=== PATIENT | female | born 1935 | race Caucasian/White ===

== ENCOUNTER 2020-05-28 05:50 | Day surgery (SDC) | payer OTHER, SELFPAY ==
[~2020-05-28] VITALS: Ht 165.1 cm; Wt 72.6 kg
[2020-05-28] MEDS ORDERED: CEFAZOLIN SOD 1 GM in D5W 50 ML IV ONE (07:00)
[2020-05-28] MEDS ORDERED: ONDANSETRON HCL 4 MG/2 ML VIAL IVP PRN (07:45)
[2020-05-28] MEDS ORDERED: MIDAZOLAM HCL 5 MG/5 ML VIAL IVP PRN (07:45)
[2020-05-28 09:35] VITALS: BP_SYST 122
[2020-05-28] MEDS ORDERED: D5/0.45 NS 1,000 ML IV SCH (10:00)
[2020-05-28] MEDS ORDERED: HYDROmorphone 1 MG INJ. 1 MG/ML AMPUL IVP PRN (10:00)
[2020-05-28] MEDS ORDERED: HYDROcodone/ACETAMIN 5-325 MG TAB (NORCO/ VICODIN) PO PRN ×2 (10:00)
== END 2020-05-28 10:20 | disposition home or self-care (01) ==
LOC: SMU 05:50 → SDS 05:50
PROVIDERS: ATTEND Colon & Rectal Surgery
DX: C44.519 Basal cell carcinoma of skin of other part of trunk (principal); I10 Essential (primary) hypertension; J44.9 Chronic obstructive pulmonary disease, unspecified; G62.9 Polyneuropathy, unspecified; I48.91 Unspecified atrial fibrillation; Z79.899 Other long term (current) drug therapy; Z20.828 Contact with and (suspected) exposure to other viral communicable diseases
CPT/HCPCS: 11606; 13101; 88305; 93005; J0690; J7060; U0003

== ENCOUNTER 2022-04-04 11:05 | Emergency (ER) | payer OTHER ==
[~2022-04-04] VITALS: Ht 165.1 cm; Wt 68.9 kg
[2022-04-04 11:07] VITALS: BP_SYST 159
--- NOTE | 2022-04-04 11:07 | NUR ---
Placed in room 2 . Placed on ekg monitor tech, blood pressure machine and pulse oximeter. To gown for exam. Side rails up. Report given to MITCHEL OBREGON.
--- NOTE | 2022-04-04 11:15 | NUR ---
RECEIVED PT FROM MITCHEL SHIELDS. PT BIB DAUGHTER DUE TO FALL. LAST NIGHT THE PT WALKED TO THE BATHROOM, STATES SHE FELL AND DOESN'T REMEMBER DOING IT. PT HAD DIFFICULTY BREATHING AND HAS LEFT ELBOW SWELLING AND ECCYMOSIS. PT IS AAOX4. ON R/A. DENIES N/V/D/C. SKIN INTACT, PERIPHERAL PULSES NORMAL. STATES PAIN WITH BREATHING IS 7/10. SIDERAILS UP X2.
--- NOTE | 2022-04-04 11:20 | NUR ---
DR. REY AT BEDSIDE. EKG PREFORMED. LABS OBTAINED.
[2022-04-04] MEDS ORDERED: KETOROLAC TROMETHAMINE 30 MG VIAL IM ONE (11:45)
[2022-04-04] MEDS ORDERED: LORazepam 1 MG TABLET PO ONE (11:45)
--- NOTE | 2022-04-04 11:45 | NUR ---
SCHEDULED MEDS GIVEN AND TOLERATED WELL. PT TAKEN FOR CT SCAN.
[2022-04-04 11:59] LABS: BASOPHILS % (AUTO) 0.4 % (0.0-2.0); EOSINOPHILS # (AUTO) 0.1 K/uL (0.0-0.4); EOSINOPHILS % (AUTO) 2.2 % (0.0-4.0); HEMATOCRIT 37.7 % (36-48); HEMOGLOBIN 12.8 g/dL (12.0-16.0); LYMPHOCYTES # (AUTO) 0.7 K/uL (1.0-5.5); LYMPHOCYTES % (AUTO) 11.3 % (20.5-51.5); MEAN CORPUSCULAR HEMOGLOBIN 32 pg (27-31); MEAN CORPUSCULAR HGB CONC 34 % (32-36); MEAN CORPUSCULAR VOLUME 95 fL (79.0-98.0); MONOCYTES # (AUTO) 0.5 K/uL (0.0-1.0); MONOCYTES % (AUTO) 8.2 % (1.7-9.3); NEUTROPHILS # (AUTO) 5.2 K/uL (1.8-7.7); NEUTROPHILS % (AUTO) 77.9 % (40.0-70.0); PLATELET COUNT (AUTO) 258 K/uL (130-430); RED BLOOD CELL COUNT(AUTO) 3.98 MIL/uL (4.2-6.2); WHITE BLOOD COUNT (AUTO) 6.6 K/uL (4.8-10.8)
--- NOTE | 2022-04-04 12:19 | NUR ---
PT TAKEN FOR CT SCAN AT THIS TIME.
[2022-04-04 12:24] LABS: ANION GAP 8 (5-15); CALCIUM 9.2 mg/dL (8.4-11.0); CHLORIDE 106 mmol/L (98-107); CREATININE 1.01 mg/dL (0.55-1.30); GLUCOSE 169 mg/dL (70-99); POTASSIUM 3.8 mmol/L (3.5-5.1); UREA NITROGEN, BLOOD 10 mg/dL (8-21)
[2022-04-04 12:26] LABS: INR 1.2 (0.8-1.2); PROTHROMBIN TIME 12.5 SECS (9.5-12.5)
[2022-04-04 12:31] LABS: ALANINE AMINOTRANSFERASE 37 U/L (12-78); ASPARTATE AMINOTRANSFERASE 26 U/L (10-37); TOTAL BILIRUBIN 0.8 mg/dL (0.0-1.0)
[2022-04-04] MEDS ORDERED: IBUP-1969 PO (13:10)
--- NOTE | 2022-04-04 14:29 | NUR ---
Patient given written and verbal discharge instructions and verbalizes understanding. ER MD discussed with patient the results and treatment provided. Patient in stable condition. ID arm band removed. IV catheter removed intact and dressing applied, no active bleeding. Rx of IBUPROPHEN given. Patient educated on pain management and to follow up with PMD. Pain Scale 2/10. Opportunity for questions provided and answered. Medication side effect fact sheet provided.
[2022-04-04 14:30] VITALS: BP_SYST 147
== END 2022-04-04 14:29 | disposition home or self-care (01) ==
LOC: SED 11:05
DX: S20.211A Contusion of right front wall of thorax, initial encounter (principal); R55 Syncope and collapse; Z88.5 Allergy status to narcotic agent; Z88.6 Allergy status to analgesic agent; Z88.8 Allergy status to other drugs, medicaments and biological substances; Z79.899 Other long term (current) drug therapy; W18.11XA Fall from or off toilet without subsequent striking against object, initial encounter; Y93.89 Activity, other specified; Y92.002 Bathroom of unspecified non-institutional (private) residence as the place of occurrence of the external cause; Y99.8 Other external cause status
CPT/HCPCS: 99285; 71250; 80053; 82962; 85025; 85610; 85730; 84484; 36415; 93005; 76376; 96372; J1885

== ENCOUNTER 2022-05-19 13:51 | Inpatient (IN) | payer MEDICARE, OTHER ==
[~2022-05-19] VITALS: Ht 160 cm; Wt 68.0 kg
[~2022-05-19 13:51] MED LIST: IBUP-1969 PO
[2022-05-19 13:52] VITALS: BP_SYST 145
--- NOTE | 2022-05-19 14:06 | NUR ---
DR HERNANDEZ AT BEDSIDE EXAMINING THE PATIENT.
[2022-05-19] MEDS ORDERED: methylPREDNISolone SOD SUCC/PF 62.5 MG/ML VIAL IVP ONE (14:15)
[2022-05-19] MEDS ORDERED: LORazepam 2 MG/ML VIAL IVP ONE (14:15)
[2022-05-19] MEDS ORDERED: ALBUTEROL SULFATE 0.083% 2.5 MG/3 ML VIAL.NEB INH ONE (14:15)
[2022-05-19 15:29] LABS: BASOPHILS % (AUTO) 0.4 % (0.0-2.0); EOSINOPHILS # (AUTO) 0.2 K/uL (0.0-0.4); HEMATOCRIT 30.1 % (36-48); HEMOGLOBIN 10.2 g/dL (12.0-16.0); LYMPHOCYTES # (AUTO) 0.5 K/uL (1.0-5.5); LYMPHOCYTES % (AUTO) 5.8 % (20.5-51.5); MEAN CORPUSCULAR HEMOGLOBIN 32 pg (27-31); MEAN CORPUSCULAR HGB CONC 34 % (32-36); MEAN CORPUSCULAR VOLUME 94 fL (79.0-98.0); MONOCYTES # (AUTO) 0.7 K/uL (0.0-1.0); MONOCYTES % (AUTO) 8.6 % (1.7-9.3); NEUTROPHILS # (AUTO) 7.2 K/uL (1.8-7.7); NEUTROPHILS % (AUTO) 83.2 % (40.0-70.0); PLATELET COUNT (AUTO) 367 K/uL (130-430); RED CELL DISTRIBUTION WIDTH 13.8 % (9.0-15.0); WHITE BLOOD COUNT (AUTO) 8.6 K/uL (4.8-10.8)
[2022-05-19 15:38] LABS: ANION GAP 5 (5-15); CALCIUM 9.3 mg/dL (8.4-11.0); CHLORIDE 102 mmol/L (98-107); CREATININE 1.03 mg/dL (0.55-1.30); GLUCOSE 120 mg/dL (70-99); UREA NITROGEN, BLOOD 11 mg/dL (8-21)
[2022-05-19 15:46] LABS: ALANINE AMINOTRANSFERASE 37 U/L (12-78); ALBUMIN 3.4 g/dL (3.4-4.8); ASPARTATE AMINOTRANSFERASE 28 U/L (10-37); TOTAL BILIRUBIN 0.9 mg/dL (0.0-1.0)
--- NOTE | 2022-05-19 16:00 | NUR ---
# 20 gauge angiocath placed to left a/c . Use of aseptic technique. Opsite placed over site. Blood return noted. Flushed with 10 cc of normal saline. No evidence of infiltration noted. Patient tolerated well.
[2022-05-19] MEDS ORDERED: NS 500 ML IV ONE (16:15)
--- NOTE | 2022-05-19 16:20 | NUR ---
IV ATIVAN DISCONTINUED BY DR HERNANDEZ.
--- NOTE | 2022-05-19 16:30 | NUR ---
OXYGEN SWITCHED FROM BIPAP TO NASAL CANNULA AT [address]L ORDERED BY DR ELAM.
[2022-05-19] MEDS ORDERED: NOREPINEPHRINE BITARTRATE 4 MG in NS 246 ML IV ONE (17:00)
[2022-05-19] MEDS ORDERED: IPRATROPIUM/ALBUTEROL SULFATE 3 ML AMPUL.NEB (DUONEB) INH PRN (17:00)
[2022-05-19] MEDS ORDERED: RIVA15TA PO (17:05)
[2022-05-19] MEDS ORDERED: BACL20 PO (17:05)
[2022-05-19] MEDS ORDERED: ROPI1TAB6 PO (17:05)
[2022-05-19] MEDS ORDERED: LEVE1000 PO (17:05)
[2022-05-19] MEDS ORDERED: AMLO5TAB4 PO (17:05)
[2022-05-19] MEDS ORDERED: CLON1TAB12 PO (17:05)
[2022-05-19] MEDS ORDERED: NEU300 PO (17:05)
[2022-05-19] MEDS ORDERED: COMMUNICATION ORDER XX ONE (17:15)
--- NOTE | 2022-05-19 18:04 | NUR ---
Admit bed requested Patient will be admitted to care of . Admitted to TELEMETRY unit. Diagnosis EXACERBATION COPD Inpatient (Yes) Observation ( No) Orientation concerns or request close to nursing station ( No) Covid Status PENDING On vent or bipap NO Isolation requirements NO Needs a sitter NO From Home (Yes or if No enter name of facility) YES Requires Dialysis (NO) Med Rec Completed (Yes )
[2022-05-19] MEDS: IPRATROPIUM/ALBUTEROL SULFATE 3 ML AMPUL.NEB (DUONEB) INH SCH ×2 (19:41→23:06)
--- NOTE | 2022-05-19 20:00 | NUR ---
Patient resting quietly. No acute distress noted. Pt repositioned in bed. RT at bedside.
[2022-05-19] MEDS: methylPREDNISolone SOD SUCC/PF 62.5 MG/ML VIAL IVP SCH (21:00)
[2022-05-19] MEDS: cefTRIAXone 1 GM in D5W 50 ML IV SCH (21:35)
--- NOTE | 2022-05-19 21:44 | NUR ---
Medication reconciliation completed with information provided by patient list. Any prior medication reconciliation on file was reviewed and corrected.
--- NOTE | 2022-05-19 22:00 | NUR ---
[facility] Licensed nurse present. IV present no signs or symptoms of infiltration. Report given to Sherry GRULLON.
[2022-05-20] MEDS ORDERED: AZITHROMYCIN 500 MG/VIAL (ZITHROMAX) IV ONE (01:42)
[2022-05-20] MEDS: AZITHROMYCIN 250 MG in NS 250 ML IV SCH (03:18)
[2022-05-20 04:56] VITALS: BP_SYST 122
--- NOTE | 2022-05-20 07:30 | NUR ---
AM ROUNDS ASSUMED PATIENT CARE. IN BED ON HIGH BACK REST. NOTED SHORTNESS OF BREATH O EXERTION, DRY COUGH TOO. O2 AT 3LITERS NASAL; CANNULA O2 SAT 94%. CALLED RT FOR BREATHING TREATMENTS. PLAN OF CARE DISCUSSED WITH PATIENT, ORIENTED TO USE OF CALL LIGHT. PATIENT VERBALIZED UNDERSTANDING
[2022-05-20 07:34] LABS: ANION GAP 9 (5-15); CALCIUM 8.8 mg/dL (8.4-11.0); CHLORIDE 99 mmol/L (98-107); CREATININE 1.14 mg/dL (0.55-1.30); GLUCOSE 142 mg/dL (70-99); UREA NITROGEN, BLOOD 13 mg/dL (8-21)
[2022-05-20 07:42] LABS: BASOPHILS % (AUTO) 0.4 % (0.0-2.0); HEMOGLOBIN 9.7 g/dL (12.0-16.0); LYMPHOCYTES # (AUTO) 0.3 K/uL (1.0-5.5); MEAN CORPUSCULAR HEMOGLOBIN 32 pg (27-31); MEAN CORPUSCULAR HGB CONC 35 % (32-36); MEAN CORPUSCULAR VOLUME 94 fL (79.0-98.0); MONOCYTES # (AUTO) 0.3 K/uL (0.0-1.0); MONOCYTES % (AUTO) 4.3 % (1.7-9.3); NEUTROPHILS # (AUTO) 5.8 K/uL (1.8-7.7); NEUTROPHILS % (AUTO) 91.3 % (40.0-70.0); PLATELET COUNT (AUTO) 323 K/uL (130-430); RED CELL DISTRIBUTION WIDTH 13.6 % (9.0-15.0); WHITE BLOOD COUNT (AUTO) 6.3 K/uL (4.8-10.8)
[2022-05-20] MEDS: IPRATROPIUM/ALBUTEROL SULFATE 3 ML AMPUL.NEB (DUONEB) INH SCH ×3 (07:48→23:38)
[2022-05-20 07:59] VITALS: BP_SYST 133
[2022-05-20] MEDS: methylPREDNISolone SOD SUCC/PF 62.5 MG/ML VIAL IVP SCH ×2 (08:42→21:58)
--- NOTE | 2022-05-20 11:15 | NUR ---
CHANGE OF THREADING MACHINE OPERATOR REPORT GIVEN TO GEORGI FOR CONTINUITY OF CARE
[2022-05-20 12:45] VITALS: BP_SYST 135
[2022-05-20 15:31] VITALS: BP_SYST 138
[2022-05-20] MEDS ORDERED: IBUPROFEN 600 MG TABLET PO PRN (15:45)
[2022-05-20] MEDS ORDERED: amLODIPine BESYLATE 5 MG TABLET PO ONE (16:15)
[2022-05-20] MEDS: clonazePAM 0.5 MG TABLET PO SCH (17:08)
--- NOTE | 2022-05-20 17:17 | NUR ---
PT ASKING FOR SLEEP AID FOR TONIGHT AND COUGH MEDICINE DR BERNAL MADE AWARE AND PHENERGAN WITH CODIENE ORDERED AND NOT NOTED AND CARRIED OUT PT HAS SEVERE ALLERGY TO CODEINE MD BERNAL CALLED BACK AWAITING A RETURN CALL
[2022-05-20] MEDS ORDERED: COMMUNICATION ORDER XX ONE (18:00)
[2022-05-20] MEDS ORDERED: RIVAROXABAN 15 MG TABLET PO SCH (18:00)
[2022-05-20] MEDS ORDERED: DIPHENHYDRAMINE HCL 25 MG CAPSULE PO PRN (19:15)
[2022-05-20 20:13] VITALS: BP_SYST 140
[2022-05-20] MEDS ORDERED: roPINIRole HCL 0.25 MG ( REQUIP )TABLET PO SCH (21:00)
[2022-05-20] MEDS: FAMOTIDINE 20 MG TABLET PO SCH (21:56)
[2022-05-20] MEDS: GABAPENTIN 300 MG CAPSULE PO SCH (21:57)
[2022-05-20] MEDS: levETIRAcetam 500 MG TABLET PO SCH (21:59)
[2022-05-20] MEDS: cefTRIAXone 1 GM in D5W 50 ML IV SCH (22:04)
[2022-05-21] MEDS: IPRATROPIUM/ALBUTEROL SULFATE 3 ML AMPUL.NEB (DUONEB) INH SCH ×4 (01:03→18:40)
[2022-05-21] MEDS: AZITHROMYCIN 250 MG in NS 250 ML IV SCH ×2 (01:10→23:45)
[2022-05-21 01:33] VITALS: BP_SYST 144
[2022-05-21 08:00] VITALS: BP_SYST 138
--- NOTE | 2022-05-21 08:00 | NUR ---
OPENING NOTE Patient sitting up in bed about to receive her echo. No sign of distress and denies pain. Patient is alert and oriented x4. Nasal cannula in place on 3L, oxygen saturation 97%. All needs met at this time and safety checks made.
[2022-05-21] MEDS ORDERED: RIVAROXABAN 15 MG TABLET PO SCH (09:00)
[2022-05-21] MEDS: levETIRAcetam 500 MG TABLET PO SCH ×2 (09:14→21:44)
[2022-05-21] MEDS: GABAPENTIN 300 MG CAPSULE PO SCH ×2 (09:14→21:45)
[2022-05-21] MEDS: FAMOTIDINE 20 MG TABLET PO SCH ×2 (09:14→21:45)
[2022-05-21] MEDS: amLODIPine BESYLATE 5 MG TABLET PO SCH (09:15)
[2022-05-21] MEDS: methylPREDNISolone SOD SUCC/PF 62.5 MG/ML VIAL IVP SCH (09:48)
[2022-05-21] MEDS: RIVAROXABAN 15 MG TABLET PO SCH (12:12)
[2022-05-21 12:50] VITALS: BP_SYST 137
--- NOTE | 2022-05-21 15:11 | NUR ---
PAGEFlor ANDREW FOR SEIZURE Patient's daughter alerted staff that her mom was having a seizure. Patient was disoriented and shaky when the nurse entered the room. No injury noted. Dr Guerra made aware, new orders received.
[2022-05-21] MEDS ORDERED: LORazepam 2 MG/ML VIAL IM PRN (15:15)
--- NOTE | 2022-05-21 15:33 | NUR ---
HOLD PHYSICAL THERAPY EVALUATION UNTIL TOMORROW DUE TO PATIENT EXPERIENCING SEIZURE ACTIVITY.
[2022-05-21] MEDS ORDERED: ROPI2TAB7 PO (16:46)
--- NOTE | 2022-05-21 16:46 | NUR ---
PATIENT'S HOME MEDICATION Spoke with patient's family regarding patient's dose of ropinirole. Patient's family states she takes 2mg at 1400 and 2mg at bedtime. Adjusted med reconciliation report and will reach out to the MD per family's request.
[2022-05-21 17:12] VITALS: BP_SYST 164
[2022-05-21 17:16] VITALS: BP_SYST 143
[2022-05-21] MEDS: clonazePAM 0.5 MG TABLET PO SCH (17:53)
--- NOTE | 2022-05-21 18:01 | NUR ---
PAGEFlor ANDREW Paged Dr Jiménez for orders, patient having persistent coughing fits. Addendum: 05/21/22 at 1859 by Blank Salguero LVN SPOKE WITH Received new order
[2022-05-21] MEDS ORDERED: PROMETHAZINE-DM 6.25 MG-15 MG/5 ML UDC PO PRN (19:00)
--- NOTE | 2022-05-21 19:31 | NUR ---
CLOSING NOTE Patient is calm and cooperative, resting in bed with eyes closed. Patient has stopped coughing after receiving breathing treatment. Family has been updated on the plan of care, verbalized understanding. Breathing is currently nonlabored and even, nasal cannula in place. Comfort measures provided throughout the shift. All needs met at this time and safety checks made. Endorsed to collar tailor nurse.
[2022-05-21 20:00] VITALS: BP_SYST 150
[2022-05-21] MEDS: METHYLPREDNISOLONE SOD SUCC 40 MG/ML VIAL IVP SCH (21:45)
[2022-05-21] MEDS: cefTRIAXone 1 GM in D5W 50 ML IV SCH (21:46)
[2022-05-22] VITALS (7 sets, daily range): BP systolic 133–160
[2022-05-22] MEDS: IPRATROPIUM/ALBUTEROL SULFATE 3 ML AMPUL.NEB (DUONEB) INH SCH ×4 (00:55→19:49)
--- NOTE | 2022-05-22 04:55 | NUR ---
Consultation Paged Reason for Consultation: Seizure Was consult called: Y Person who was notified: Dr. Tony through text message Consulting Physician: Michi Encarnacion Ordering Physician:
--- NOTE | 2022-05-22 05:31 | NUR ---
As per patient she pulled out her IV access by accident. Using aseptic technique, reinserted a new IV access to L wrist #22 , first attempt, patient tolerated the procedure well.
--- NOTE | 2022-05-22 07:40 | NUR ---
OPENING NOTE Patient in bed resting. A/O x 4 with bouts of confusion, Polish speaking. No pain, no SOB, no distress noted at this time. Patient on NC at 3LPM. On Sz precautions. Left wrist 22g patent on SL. All needs met at this time, bed locked in lowest position, call light within reach. Will continue to monitor.
[2022-05-22] MEDS: GABAPENTIN 300 MG CAPSULE PO SCH ×2 (09:14→21:01)
[2022-05-22] MEDS: levETIRAcetam 500 MG TABLET PO SCH ×2 (09:14→21:01)
[2022-05-22] MEDS: amLODIPine BESYLATE 5 MG TABLET PO SCH ×2 (09:15→21:00)
[2022-05-22] MEDS: FAMOTIDINE 20 MG TABLET PO SCH ×2 (09:15→21:01)
[2022-05-22] MEDS: RIVAROXABAN 15 MG TABLET PO SCH (09:16)
--- NOTE | 2022-05-22 10:30 | NUR ---
Patient noted coughing and given PRN cough medication. is also asking regarding EEG order from MD Tony. Placed a call to cardio dept and stated that they will call back once they have an ETA. was informed.
[2022-05-22] MEDS: METHYLPREDNISOLONE SOD SUCC 40 MG/ML VIAL IVP SCH ×2 (10:50→21:02)
--- NOTE | 2022-05-22 12:05 | NUR ---
Patient Rounds Patient in bed resting. Daughter at bedside. No pain, no SOB, no distress noted at this time. Sz precautions in place. All needs met at this time, bed locked in lowest position, call light within reach. Will continue to monitor.
--- NOTE | 2022-05-22 15:26 | NUR ---
Placed a call to MD Tony due to patient's family questioning why Requip was decreased from 4mg to 3mg. At home patient takes 2mg, twice a day and in the hospital it is 1mg three times a day. Explained to MD Tony which he then stated to go ahead and order it like the family has been given it. Orders received and carried out. Explained to family.
[2022-05-22] MEDS: clonazePAM 0.5 MG TABLET PO SCH (17:36)
[2022-05-22] MEDS ORDERED: BENZONATATE 100 MG CAPSULE (TESSALON) PO PRN (17:45)
--- NOTE | 2022-05-22 18:47 | NUR ---
CLOSING NOTE Patient in bed resting. A/O x 4 with bouts of confusion, Hong Konger speaking. No pain, no SOB, no distress noted at this time. Patient on NC at 3LPM. On Sz precautions. Left wrist 22g patent on SL. All needs met at this time, bed locked in lowest position, call light within reach. Will endorse to nightshift nurse.
[2022-05-22] MEDS: guaiFENesin ER 600 MG TAB PO SCH (21:01)
[2022-05-22] MEDS: cefTRIAXone 1 GM in D5W 50 ML IV SCH (21:02)
[2022-05-23 00:16] VITALS: BP_SYST 138
[2022-05-23] MEDS: IPRATROPIUM/ALBUTEROL SULFATE 3 ML AMPUL.NEB (DUONEB) INH SCH ×4 (01:00→20:59)
[2022-05-23] MEDS: AZITHROMYCIN 250 MG in NS 250 ML IV SCH ×2 (01:02→20:39)
[2022-05-23 06:54] LABS: BASOPHILS % (AUTO) 0.1 % (0.0-2.0); HEMATOCRIT 32.7 % (36-48); HEMOGLOBIN 10.9 g/dL (12.0-16.0); LYMPHOCYTES # (AUTO) 0.3 K/uL (1.0-5.5); LYMPHOCYTES % (AUTO) 2.9 % (20.5-51.5); MEAN CORPUSCULAR HEMOGLOBIN 32 pg (27-31); MEAN CORPUSCULAR HGB CONC 33 % (32-36); MEAN CORPUSCULAR VOLUME 96 fL (79.0-98.0); MONOCYTES # (AUTO) 0.4 K/uL (0.0-1.0); MONOCYTES % (AUTO) 3.5 % (1.7-9.3); NEUTROPHILS % (AUTO) 93.5 % (40.0-70.0); PLATELET COUNT (AUTO) 469 K/uL (130-430); RED CELL DISTRIBUTION WIDTH 13.8 % (9.0-15.0); WHITE BLOOD COUNT (AUTO) 10.7 K/uL (4.8-10.8)
[2022-05-23 07:16] LABS: ANION GAP 5 (5-15); CALCIUM 9.3 mg/dL (8.4-11.0); CHLORIDE 106 mmol/L (98-107); CREATININE 0.89 mg/dL (0.55-1.30); GLUCOSE 148 mg/dL (70-99); PHOSPHORUS 3.6 mg/dL (2.7-4.5); UREA NITROGEN, BLOOD 15 mg/dL (8-21)
[2022-05-23 08:00] VITALS: BP_SYST 166
[2022-05-23] MEDS: RIVAROXABAN 15 MG TABLET PO SCH (09:00)
[2022-05-23] MEDS: guaiFENesin ER 600 MG TAB PO SCH ×2 (09:00→20:37)
[2022-05-23] MEDS: levETIRAcetam 500 MG TABLET PO SCH ×3 (10:12→20:37)
[2022-05-23] MEDS: amLODIPine BESYLATE 5 MG TABLET PO SCH ×2 (10:14→20:38)
[2022-05-23] MEDS: FAMOTIDINE 20 MG TABLET PO SCH ×2 (10:15→20:37)
[2022-05-23] MEDS: METHYLPREDNISOLONE SOD SUCC 40 MG/ML VIAL IVP SCH ×2 (10:16→20:37)
[2022-05-23] MEDS: GABAPENTIN 300 MG CAPSULE PO SCH ×2 (10:16→20:37)
[2022-05-23 11:52] VITALS: BP_SYST 160
--- NOTE | 2022-05-23 13:02 | NUR ---
PATIENT AMBULATED WITH THE FWW 400 FT. SHE IS SAFE TO AMBULATE WITH NURSING ASSISTANCE FOR SAFETY.
[2022-05-23 16:39] VITALS: BP_SYST 146
--- NOTE | 2022-05-23 19:30 | NUR ---
Patient continues to improve able to get up out of bed and ambulate in room and with therapist. set's at side with all day request's lots information. Daughter here today as well up dated in progress. Continues on IV antibiotic's has good appetite. Assessment unchanged lungs congested with rhonchi sat's good on 2 liter's 02 95 to 96. continues on breathing treatment's. Will ask for treatment if needed. Has bad cough receiving medication prn and scheduled for persistent cough. No complaint's or request's at this time. Reporting off to night nurse
[2022-05-23 20:00] VITALS: BP_SYST 138
[2022-05-23] MEDS: clonazePAM 0.5 MG TABLET PO SCH (20:38)
[2022-05-23] MEDS: cefTRIAXone 1 GM in D5W 50 ML IV SCH (20:38)
--- NOTE | 2022-05-23 22:17 | NUR ---
Patient in bed. No acute distress noted. No complaint of pain or discomfort. Will continue to monitor.
[2022-05-24] MEDS: IPRATROPIUM/ALBUTEROL SULFATE 3 ML AMPUL.NEB (DUONEB) INH SCH ×4 (02:16→19:39)
--- NOTE | 2022-05-24 03:15 | NUR ---
@ 0215 patient was found walking out of restroom, pt. looked unstable, I assisted pt. to sink to wash hands and then to bed. Breathing Tx was administered with no adverse reactions. IV was noticed on side of bed, dislodged from pt, when patient was asked about IV, she had said it fell off by itself. MITCHEL Greene informed about pt. ambulating by herself and about IV status. Bed alarm was set to ON before leaving pt. room.
[2022-05-24 04:00] VITALS: BP_SYST 134
--- NOTE | 2022-05-24 04:57 | NUR ---
Patient in bed. Nurse instructed patient to call for assistance. Will continue to monitor. IV reinsert in the left wrist 22G.
[2022-05-24 07:59] VITALS: BP_SYST 158
[2022-05-24] MEDS: RIVAROXABAN 15 MG TABLET PO SCH (09:00)
[2022-05-24] MEDS: GABAPENTIN 300 MG CAPSULE PO SCH ×2 (10:25→20:20)
[2022-05-24] MEDS: amLODIPine BESYLATE 5 MG TABLET PO SCH ×2 (10:25→20:20)
[2022-05-24] MEDS: levETIRAcetam 500 MG TABLET PO SCH ×2 (10:26→20:21)
[2022-05-24] MEDS: guaiFENesin ER 600 MG TAB PO SCH ×2 (10:26→20:20)
[2022-05-24] MEDS: FAMOTIDINE 20 MG TABLET PO SCH ×2 (10:27→20:20)
[2022-05-24] MEDS: METHYLPREDNISOLONE SOD SUCC 40 MG/ML VIAL IVP SCH ×2 (10:28→20:19)
[2022-05-24 11:59] VITALS: BP_SYST 158
[2022-05-24] MEDS ORDERED: FUROSEMIDE 20 MG/2 ML VIAL IVP ONE (13:30)
[2022-05-24 16:03] VITALS: BP_SYST 150
[2022-05-24 20:00] VITALS: BP_SYST 146
--- NOTE | 2022-05-24 20:09 | NUR ---
PATIENT IMPROVING EVERY DAY ABLE TO GET UP OUT OF BED AND AMBULATE WITH OUT OXYGEN WITH SAT'S RUNNING AROUND 95. ONE TIME DOSE OF LASIX GIVEN WITH GOOD RESULT'S. KEYBOARD SPECIALIST TO SEE PATIENT AGAIN TOMORROW. AND DAUGHTER AT BEDSIDE MOST OF DAY ATTEMPTED TO ANSWER HIS QUESTION'S AND CONCERN'S BUT CAN BE A BIT OVERBEARING AND EXPECTATION'S HIGH WANTING HIS 'S CARE TO BE DONE AT THAT EXACT MOMENT NOT CONCERNED ABOUT NURSES OTHER PATIENT'S AND THERE CARE VERY NEEDY. PATIENT AWAKE ORIENTED x THREE NO C/O FROM HER. EDUCATION CONTINUED FROM YESTERDAY THROUGH OUT DAY ON DISEASE PROCESS MEDICATIONS ETC. WILL CONTINUE PLAN OF CARE. PATIENT DOES REQUIRE PRN BREATHING TREATMENT ONCE OR TWICE PER 12V HOUR SHIFT
[2022-05-24] MEDS: cefTRIAXone 1 GM in D5W 50 ML IV SCH (20:19)
[2022-05-24] MEDS: clonazePAM 0.5 MG TABLET PO SCH (20:20)
--- NOTE | 2022-05-24 22:00 | NUR ---
Ab;e to get out of bed to bedside commode with mild SOB on room air tolerates well , perineal care given , safety/fall precaution initiated.
[2022-05-25] VITALS: BP_SYST 141
--- NOTE | 2022-05-25 00:25 | NUR ---
PATIENT RESTING: Patient resting quietly. No acute distress noted. Vital signs within normal range.
[2022-05-25] MEDS: IPRATROPIUM/ALBUTEROL SULFATE 3 ML AMPUL.NEB (DUONEB) INH SCH ×4 (01:46→23:09)
[2022-05-25 08:00] VITALS: BP_SYST 138
[2022-05-25] MEDS: guaiFENesin ER 600 MG TAB PO SCH ×2 (09:49→20:54)
[2022-05-25] MEDS: RIVAROXABAN 15 MG TABLET PO SCH (09:49)
[2022-05-25] MEDS: amLODIPine BESYLATE 5 MG TABLET PO SCH ×2 (09:52→20:54)
[2022-05-25] MEDS: FAMOTIDINE 20 MG TABLET PO SCH ×2 (09:52→20:53)
[2022-05-25] MEDS: GABAPENTIN 300 MG CAPSULE PO SCH ×2 (09:52→20:53)
[2022-05-25] MEDS: METHYLPREDNISOLONE SOD SUCC 40 MG/ML VIAL IVP SCH ×2 (09:55→20:52)
[2022-05-25 11:49] VITALS: BP_SYST 147
[2022-05-25 17:04] VITALS: BP_SYST 140
[2022-05-25] MEDS ORDERED: LORazepam 2 MG/ML VIAL IVP PRN (19:15)
--- NOTE | 2022-05-25 19:33 | NUR ---
PATIENT CONTINUES TO MAKE PROGRESS WITH ALTERATION IN OXYGENATION SAT'S 95 WITH OUT OXYGEN AT REST. PATIENT GETTING UP OUT OF BED FREQUENTLY ALL DAY TO URINATE LAST DOSE OF LASIX YESTERDAY AFTERNOON ONE TIME ORDER. PATIENT EXPERIENCED ANOTHER SEIZURE THIS AFTERNOON AROUND 16:30. RN MYSELF WAS ASSISTING PATIENT BACK TO BED AFTER BEING UP TO BSC FELL BACK APPEARED TO HAVE LOST CONCISENESS ASKED PATIENT IF SHE WAS OK THEN SHE STARTED HAVING SEIZURE. FULL BODY SHAKING LOSS OF CONCISENESS FOR ABOUT 3 TO 5 MIN'S. RAPID RESPONSE CALLED ATIVAN IV OBTAINED TO GIVE BUT PATIENT CAME OUT OF SEIZURE AWOKEN AND IN FEW MIN'S B ACK TO SELF. SPEAKING COHERENT MOVING NORMALLY. ATTENDING CALLED AND NOTIFIED WELL DR NURIA QUIÑONES DID NOT RESPOND LATER ATTENDING DR CHRISTENSEN NOTIFIED AGAIN BY ONCOMING NURSE WITH NEW ATIVAN ORDER'S FOR PATIENT. PATIENT ABLE TO RESUME NORMAL ROUTINE HERE IN HOSPITAL. ATE ALL OF DINNER. STATE'S SHE IS FINE NOW. PLAN OF CARE CONTINUE TO MONITOR FOR SEIZURE ACTIVITY AND MONITOR PROGRESS OF LUNG STATUS.
[2022-05-25 20:00] VITALS: BP_SYST 146
[2022-05-25] MEDS: cefTRIAXone 1 GM in D5W 50 ML IV SCH (20:52)
[2022-05-25] MEDS: clonazePAM 0.5 MG TABLET PO SCH (20:53)
[2022-05-25] MEDS: levETIRAcetam 500 MG TABLET PO SCH (20:53)
[2022-05-25] MEDS ORDERED: levETIRAcetam 500 MG TABLET PO SCH (21:00)
[2022-05-26] VITALS: BP_SYST 154
[2022-05-26] MEDS: IPRATROPIUM/ALBUTEROL SULFATE 3 ML AMPUL.NEB (DUONEB) INH SCH ×2 (07:46→14:25)
[2022-05-26 08:00] VITALS: BP_SYST 150
[2022-05-26] MEDS: guaiFENesin ER 600 MG TAB PO SCH (08:50)
[2022-05-26] MEDS: levETIRAcetam 500 MG TABLET PO SCH (08:50)
[2022-05-26] MEDS: GABAPENTIN 300 MG CAPSULE PO SCH (08:51)
[2022-05-26] MEDS: FAMOTIDINE 20 MG TABLET PO SCH (08:51)
[2022-05-26] MEDS: METHYLPREDNISOLONE SOD SUCC 40 MG/ML VIAL IVP SCH (08:52)
[2022-05-26] MEDS: amLODIPine BESYLATE 5 MG TABLET PO SCH (08:52)
[2022-05-26] MEDS: RIVAROXABAN 15 MG TABLET PO SCH (08:55)
--- NOTE | 2022-05-26 08:55 | NUR ---
MEDICATION PATIENTS SCHEDULED MEDICATION GIVEN PER ORDER. PATIENT TOLERATED MEDICATION WELL. PATIENT WAS EDUCATED BRUSH SANDER LIGHT FOR ASSISTANCE. CALL LIGHT IS WITH HER. NO OTHER NEEDS OR COMPLAINTS AT THIS TIME.
[2022-05-26] MEDS ORDERED: HYDROCHLOROTHIAZIDE 12.5 MG CAPSULE (HCTZ) PO SCH (09:00)
[2022-05-26 11:49] VITALS: BP_SYST 162
[2022-05-26 16:00] VITALS: BP_SYST 145
[2022-05-26 17:45] VITALS: BP_SYST 146; BP_SYST 162
[2022-05-26 18:23] VITALS: BP_SYST 144
--- NOTE | 2022-05-26 18:54 | NUR ---
discharge Patient discharged per order. spoke with Dr. Mooney he will place orders on the computer. family and patinet informed. patients iv catheter removed, place gauze and tape to insertion site.
== END 2022-05-26 18:54 | disposition home or self-care (01) | DRG 871 ==
LOC: SED 13:51 → STU 16:50
PROVIDERS: ADMIT Specialist; ATTEND Specialist
PROC: 5A09357 Assistance with Respiratory Ventilation, Less than 24 Consecutive Hours, Continuous Positive Airway Pressure (ICD-10-PCS; principal; 2022-05-19)
PROC: 4A00X4Z Measurement of Central Nervous Electrical Activity, External Approach (ICD-10-PCS; 2022-05-22)
DX: A41.9 Sepsis, unspecified organism (principal); J18.9 Pneumonia, unspecified organism; J96.00 Acute respiratory failure, unspecified whether with hypoxia or hypercapnia; J44.1 Chronic obstructive pulmonary disease with (acute) exacerbation; J45.901 Unspecified asthma with (acute) exacerbation; J44.0 Chronic obstructive pulmonary disease with (acute) lower respiratory infection; I10 Essential (primary) hypertension; G25.81 Restless legs syndrome; J20.9 Acute bronchitis, unspecified; G40.909 Epilepsy, unspecified, not intractable, without status epilepticus; Z20.822 Contact with and (suspected) exposure to COVID-19; Z88.6 Allergy status to analgesic agent; Z88.1 Allergy status to other antibiotic agents; Z88.5 Allergy status to narcotic agent; Z88.8 Allergy status to other drugs, medicaments and biological substances; Z79.899 Other long term (current) drug therapy
CPT/HCPCS: 36415; 70450-TC; 71045; 76376; 80048; 80053; 83605; 83735; 83880; 84100; 84484; 85025; 87040; 93306; 94640; 94660; 94668; 94760; 95816; 97116-GP; 97530-GP; 99291; 99292; G0378; J0456; J0696; J1030; J1940; J1956; J2060; J2930; J7040; J7042; J7050; J7060; J7613; Q0163

== ENCOUNTER 2022-11-08 21:52 | Inpatient (IN) | payer MEDICARE, OTHER ==
[~2022-11-08] VITALS: Ht 165.1 cm; Wt 75.3 kg
[~2022-11-08 21:52] MED LIST changes: +CLON1TAB12 PO; -IBUP-1969 PO; +LEVE1000 PO; +NEU300 PO; +RIVA15TA PO; +ROPI2TAB7 PO
[2022-11-08 22:00] VITALS: BP_SYST 144
[2022-11-08 22:27] LABS: BASOPHILS # (AUTO) 0.1 K/uL (0.0-0.2); BASOPHILS % (AUTO) 0.6 % (0.0-2.0); EOSINOPHILS # (AUTO) 0.1 K/uL (0.0-0.4); EOSINOPHILS % (AUTO) 0.8 % (0.0-4.0); HEMATOCRIT 30.9 % (36-48); HEMOGLOBIN 10.3 g/dL (12.0-16.0); LYMPHOCYTES # (AUTO) 0.1 K/uL (1.0-5.5); LYMPHOCYTES % (AUTO) 1.3 % (20.5-51.5); MEAN CORPUSCULAR HEMOGLOBIN 30 pg (27-31); MEAN CORPUSCULAR HGB CONC 33 % (32-36); MEAN CORPUSCULAR VOLUME 90 fL (79.0-98.0); MONOCYTES % (AUTO) 12.4 % (1.7-9.3); NEUTROPHILS # (AUTO) 7.1 K/uL (1.8-7.7); NEUTROPHILS % (AUTO) 84.9 % (40.0-70.0); PLATELET COUNT (AUTO) 292 K/uL (130-430); RED BLOOD CELL COUNT(AUTO) 3.44 MIL/uL (4.2-6.2); RED CELL DISTRIBUTION WIDTH 14.8 % (9.0-15.0); WHITE BLOOD COUNT (AUTO) 8.4 K/uL (4.8-10.8)
[2022-11-08] MEDS ORDERED: LOSA25TA3 PO (22:36)
[2022-11-08] MEDS ORDERED: ACET325T PO ×2 (22:36)
[2022-11-08] MEDS ORDERED: MULT-1117 PO (22:36)
[2022-11-08] MEDS ORDERED: POTA8TAB66 PO (22:36)
[2022-11-08] MEDS ORDERED: BISA10SU61 RC (22:36)
[2022-11-08] MEDS ORDERED: ZINC100T2 PO (22:36)
[2022-11-08] MEDS ORDERED: ACET-73 PO (22:36)
[2022-11-08] MEDS ORDERED: NITR-85 PO (22:36)
[2022-11-08] MEDS ORDERED: DOCU-144 PO (22:36)
[2022-11-08] MEDS ORDERED: PRO40 PO (22:36)
[2022-11-08] MEDS ORDERED: MOM PO (22:36)
[2022-11-08] MEDS ORDERED: FURO-150 PO (22:36)
[2022-11-08] MEDS ORDERED: BENZ100C92 PO (22:36)
[2022-11-08] MEDS ORDERED: OXCA300T4 PO (22:36)
[2022-11-08] MEDS ORDERED: BISA-140 PO (22:36)
[2022-11-08] MEDS ORDERED: SENN8.6T19 PO (22:36)
[2022-11-08] MEDS ORDERED: AMLO5TAB4 PO (22:36)
[2022-11-08] MEDS ORDERED: ASCO500T20 PO (22:36)
[2022-11-08] MEDS ORDERED: IPRA4AER INH (22:36)
[2022-11-08] MEDS ORDERED: HYDR-3917 PO (22:36)
[2022-11-08 22:46] LABS: CALCIUM 8.9 mg/dL (8.4-11.0); CREATININE 0.78 mg/dL (0.55-1.30); GLUCOSE 147 mg/dL (70-99); UREA NITROGEN, BLOOD 9 mg/dL (8-21)
[2022-11-08 22:51] LABS: ALANINE AMINOTRANSFERASE 22 U/L (12-78); ALBUMIN 3.2 g/dL (3.4-4.8); ASPARTATE AMINOTRANSFERASE 22 U/L (10-37); TOTAL BILIRUBIN 0.9 mg/dL (0.0-1.0)
[2022-11-08 23:00] LABS: CHLORIDE 93 mmol/L (98-107)
[2022-11-08] MEDS ORDERED: AZITHROMYCIN 500 MG in NS 250 ML IV ONE (23:00)
[2022-11-08] MEDS ORDERED: methylPREDNISolone SOD SUCC/PF 62.5 MG/ML VIAL IVP ONE (23:00)
[2022-11-08] MEDS ORDERED: levETIRAcetam 1,000 MG in NS 90 ML IV ONE (23:00)
[2022-11-08] MEDS ORDERED: ALBUTEROL SULFATE 0.083% 2.5 MG/3 ML VIAL.NEB INH ONE (23:00)
[2022-11-08 23:03] LABS: ANION GAP < 3 (5-15)
[2022-11-08] MEDS ORDERED: AZITHROMYCIN 500 MG/VIAL (ZITHROMAX) IV ONE (23:22)
[2022-11-08] MEDS ORDERED: LEVO750T64 PO ×2 (23:42)
[2022-11-08] MEDS ORDERED: ALBMDI INH (23:42)
[2022-11-08] MEDS ORDERED: PRED20TA PO ×2 (23:42)
[2022-11-08] MEDS ORDERED: ALBU2.5V7 INH (23:42)
[2022-11-09] VITALS (20 sets, daily range): BP systolic 94–145
[2022-11-09] MEDS ORDERED: ALBUTEROL SULFATE 0.083% 2.5 MG/3 ML VIAL.NEB INH ONE (00:15)
[2022-11-09 02:19] LABS: BILIRUBIN,URINE NEGATIVE (NEGATIVE); BLOOD, URINE 1+ (NEGATIVE); CLARITY/URINE SL CLOUDY (CLEAR); COLOR,URINE YELLOW (YELLOW); GLUCOSE,URINE NEGATIVE (NEGATIVE); KETONES,URINE TRACE (NEGATIVE); LEUKOCYTE ESTERASE ,URINE 3+ (NEGATIVE); NITRITE, URINE POSITIVE (NEGATIVE); PH,URINE 6.5 (5.0-8.0); PROTEIN URINE TRACE (NEGATIVE); UROBILINOGEN,URINE 0.2 (0.2-1.0)
[2022-11-09 02:25] LABS: RBC,URINE 0-3 /HPF (0-3); WBC,URINE 20-50 /HPF (0-3)
[2022-11-09 02:26] LABS: BACTERIA,URINE None Seen /HPF (None Seen)
[2022-11-09] MEDS ORDERED: PIPERACILLIN/TAZO 3.375 GM in NS 50 ML IV ONE (03:00)
[2022-11-09] MEDS ORDERED: methylPREDNISolone SOD SUCC/PF 62.5 MG/ML VIAL IVP ONE (03:00)
[2022-11-09] MEDS ORDERED: PIPERACILLIN/TAZOBACTAM 3.375 GM/VIAL (ZOSYN) IV ONE (03:07)
[2022-11-09] MEDS ORDERED: cefTRIAXone 1 GM in D5W 50 ML IV ONE (03:45)
[2022-11-09] MEDS ORDERED: methylPREDNISolone SOD SUCC/PF 62.5 MG/ML VIAL IVP SCH (06:00)
[2022-11-09] MEDS ORDERED: NALOXONE HCL 0.4 MG/ML AMP (NARCAN) IVP PRN (07:45)
[2022-11-09] MEDS ORDERED: HYDROcodone/ACETAMIN 5-325 MG TAB (NORCO/ VICODIN) PO PRN (07:45)
[2022-11-09] MEDS ORDERED: ACETAMINOPHEN 500 MG TABLET PO PRN (07:45)
[2022-11-09] MEDS ORDERED: MILK OF MAGNESIA 30 ML UDC PO SCH (07:45)
[2022-11-09 07:58] LABS: BASOPHILS % (AUTO) 0.5 % (0.0-2.0); HEMATOCRIT 29.3 % (36-48); HEMOGLOBIN 9.7 g/dL (12.0-16.0); LYMPHOCYTES # (AUTO) 0.1 K/uL (1.0-5.5); LYMPHOCYTES % (AUTO) 0.9 % (20.5-51.5); MEAN CORPUSCULAR HEMOGLOBIN 30 pg (27-31); MEAN CORPUSCULAR HGB CONC 33 % (32-36); MEAN CORPUSCULAR VOLUME 91 fL (79.0-98.0); MONOCYTES % (AUTO) 0.8 % (1.7-9.3); NEUTROPHILS # (AUTO) 5.8 K/uL (1.8-7.7); NEUTROPHILS % (AUTO) 97.8 % (40.0-70.0); PLATELET COUNT (AUTO) 256 K/uL (130-430); RED BLOOD CELL COUNT(AUTO) 3.22 MIL/uL (4.2-6.2); RED CELL DISTRIBUTION WIDTH 15.2 % (9.0-15.0)
[2022-11-09 07:59] LABS: WHITE BLOOD COUNT (AUTO) 5.9 K/uL (4.8-10.8)
[2022-11-09] MEDS ORDERED: GENTAMICIN IN NACL, ISO-OSM 100 ML IV ONE (08:00)
[2022-11-09 08:14] LABS: ANION GAP 7 (5-15); CALCIUM 8.6 mg/dL (8.4-11.0); CHLORIDE 93 mmol/L (98-107); CREATININE 1.41 mg/dL (0.55-1.30); GLUCOSE 222 mg/dL (70-99); UREA NITROGEN, BLOOD 13 mg/dL (8-21)
[2022-11-09] MEDS ORDERED: amLODIPine BESYLATE 5 MG TABLET PO SCH (09:00)
[2022-11-09] MEDS ORDERED: LOSARTAN POTASSIUM 25 MG TABLET PO SCH (09:00)
[2022-11-09] MEDS: D5LR 1,000 ML IV SCH (09:37)
[2022-11-09] MEDS: POTASSIUM CHLORIDE 10 MEQ TAB.PRT.SR PO SCH (09:38)
[2022-11-09] MEDS: DOCUSATE SODIUM 100 MG CAPSULE PO SCH ×2 (09:38→20:27)
[2022-11-09] MEDS: levETIRAcetam 500 MG TABLET PO SCH ×2 (09:39→20:57)
[2022-11-09] MEDS: MULTIVITAMINS TAB 1 TABLET PO SCH (09:40)
[2022-11-09] MEDS: FUROSEMIDE 20 MG TABLET PO SCH (09:40)
[2022-11-09] MEDS: ASCORBIC ACID 500 MG TABLET PO SCH (09:41)
[2022-11-09] MEDS: BISACODYL 10 MG/SUPPOSITORY RC SCH (09:41)
[2022-11-09] MEDS: OXcarbazepine 150 MG TABLET(TRILEPTAL) PO SCH ×2 (09:42→21:01)
[2022-11-09] MEDS: PANTOPRAZOLE SODIUM 40 MG TAB PO SCH (09:43)
[2022-11-09] MEDS: GABAPENTIN 300 MG CAPSULE PO SCH ×2 (09:48→20:57)
[2022-11-09] MEDS: cefTRIAXone 1 GM IVPB PREMIX 50 ML IV SCH (11:27)
[2022-11-09] MEDS ORDERED: METHYLPREDNISOLONE SOD SUCC 40 MG/ML VIAL IVP SCH (12:00)
[2022-11-09] MEDS: DECADRON 4 MG TABLET PO SCH (18:29)
[2022-11-09] MEDS: RIVAROXABAN 15 MG TABLET PO SCH (18:30)
[2022-11-09] MEDS: SENNOSIDES 8.6 MG TABLET PO SCH (20:29)
[2022-11-09] MEDS: BENZONATATE 100 MG CAPSULE (TESSALON) PO PRN (22:19)
[2022-11-10] VITALS (7 sets, daily range): BP systolic 110–154
[2022-11-10 05:06] LABS: BASOPHILS % (AUTO) 0.2 % (0.0-2.0); HEMATOCRIT 29.2 % (36-48); HEMOGLOBIN 9.7 g/dL (12.0-16.0); LYMPHOCYTES # (AUTO) 0.2 K/uL (1.0-5.5); LYMPHOCYTES % (AUTO) 2.1 % (20.5-51.5); MEAN CORPUSCULAR HEMOGLOBIN 30 pg (27-31); MEAN CORPUSCULAR HGB CONC 33 % (32-36); MEAN CORPUSCULAR VOLUME 90 fL (79.0-98.0); MONOCYTES # (AUTO) 0.8 K/uL (0.0-1.0); MONOCYTES % (AUTO) 8.5 % (1.7-9.3); NEUTROPHILS # (AUTO) 8.7 K/uL (1.8-7.7); NEUTROPHILS % (AUTO) 89.2 % (40.0-70.0); PLATELET COUNT (AUTO) 279 K/uL (130-430); RED BLOOD CELL COUNT(AUTO) 3.25 MIL/uL (4.2-6.2); RED CELL DISTRIBUTION WIDTH 15.2 % (9.0-15.0); WHITE BLOOD COUNT (AUTO) 9.8 K/uL (4.8-10.8)
[2022-11-10] MEDS: D5LR 1,000 ML IV SCH (05:12)
[2022-11-10 05:59] LABS: TOTAL IRON BIND. CAPACITY 341 ug/dL (250-450)
[2022-11-10 06:15] LABS: ALANINE AMINOTRANSFERASE 23 U/L (12-78); ANION GAP 4 (5-15); ASPARTATE AMINOTRANSFERASE 23 U/L (10-37); CALCIUM 8.6 mg/dL (8.4-11.0); CHLORIDE 88 mmol/L (98-107); CHOLESTEROL 193 mg/dL (<200); CREATININE 0.97 mg/dL (0.55-1.30); GLUCOSE 126 mg/dL (70-99); HDL CHOLESTEROL 90 mg/dL (>55); LIPASE 40 U/L (73-393); THYROID STIMULATING HORMONE 0.59 uIu/mL (0.34-4.82); TOTAL BILIRUBIN 0.4 mg/dL (0.0-1.0); TRIGLYCERIDES 38 mg/dL (30-150); UREA NITROGEN, BLOOD 20 mg/dL (8-21)
[2022-11-10] MEDS: BISACODYL 10 MG/SUPPOSITORY RC SCH (09:00)
[2022-11-10] MEDS: DOCUSATE SODIUM 100 MG CAPSULE PO SCH ×2 (09:00→22:38)
[2022-11-10] MEDS: FUROSEMIDE 20 MG TABLET PO SCH (09:26)
[2022-11-10] MEDS: PANTOPRAZOLE SODIUM 40 MG TAB PO SCH (09:26)
[2022-11-10] MEDS: MULTIVITAMINS TAB 1 TABLET PO SCH (09:26)
[2022-11-10] MEDS: GABAPENTIN 300 MG CAPSULE PO SCH ×2 (09:26→22:37)
[2022-11-10] MEDS: ASCORBIC ACID 500 MG TABLET PO SCH (09:26)
[2022-11-10] MEDS: POTASSIUM CHLORIDE 10 MEQ TAB.PRT.SR PO SCH (09:27)
[2022-11-10] MEDS: OXcarbazepine 150 MG TABLET(TRILEPTAL) PO SCH ×2 (09:27→22:37)
[2022-11-10] MEDS: levETIRAcetam 500 MG TABLET PO SCH ×2 (09:27→22:37)
[2022-11-10] MEDS ORDERED: MAGNESIUM OXIDE 400 MG TABLET PO ONE (13:30)
[2022-11-10] MEDS ORDERED: CHOLECALCIFEROL (VITAMIN D3) 2,000 UNIT TABLET PO ONE (13:45)
[2022-11-10] MEDS: cefTRIAXone 1 GM IVPB PREMIX 50 ML IV SCH (15:36)
[2022-11-10] MEDS: SOD FERRIC GLUC COMPLEX/SUC 125 MG in NS 100 ML IV SCH (15:58)
[2022-11-10] MEDS: DECADRON 4 MG TABLET PO SCH (17:52)
[2022-11-10] MEDS: RIVAROXABAN 15 MG TABLET PO SCH (17:54)
[2022-11-10] MEDS: BENZONATATE 100 MG CAPSULE (TESSALON) PO PRN (22:38)
[2022-11-10] MEDS: SENNOSIDES 8.6 MG TABLET PO SCH (22:38)
[2022-11-11] VITALS: BP_SYST 157
[2022-11-11 05:17] LABS: BASOPHILS % (AUTO) 0.2 % (0.0-2.0); EOSINOPHILS # (AUTO) 0.1 K/uL (0.0-0.4); EOSINOPHILS % (AUTO) 0.7 % (0.0-4.0); HEMATOCRIT 30.5 % (36-48); HEMOGLOBIN 10.3 g/dL (12.0-16.0); LYMPHOCYTES # (AUTO) 0.2 K/uL (1.0-5.5); LYMPHOCYTES % (AUTO) 1.7 % (20.5-51.5); MEAN CORPUSCULAR HEMOGLOBIN 30 pg (27-31); MEAN CORPUSCULAR HGB CONC 34 % (32-36); MEAN CORPUSCULAR VOLUME 89 fL (79.0-98.0); MONOCYTES # (AUTO) 0.6 K/uL (0.0-1.0); MONOCYTES % (AUTO) 5.6 % (1.7-9.3); NEUTROPHILS # (AUTO) 9.4 K/uL (1.8-7.7); NEUTROPHILS % (AUTO) 91.8 % (40.0-70.0); PLATELET COUNT (AUTO) 310 K/uL (130-430); RED BLOOD CELL COUNT(AUTO) 3.42 MIL/uL (4.2-6.2); RED CELL DISTRIBUTION WIDTH 14.6 % (9.0-15.0); WHITE BLOOD COUNT (AUTO) 10.2 K/uL (4.8-10.8)
[2022-11-11 05:40] LABS: ANION GAP 2 (5-15); CALCIUM 8.6 mg/dL (8.4-11.0); CHLORIDE 89 mmol/L (98-107); CREATININE 0.76 mg/dL (0.55-1.30); GLUCOSE 142 mg/dL (70-99); UREA NITROGEN, BLOOD 19 mg/dL (8-21)
[2022-11-11 08:06] LABS: FOLATE (FOLIC ACID) 14.5 ng/mL (>3.0)
[2022-11-11 08:27] VITALS: BP_SYST 141
[2022-11-11] MEDS: BISACODYL 10 MG/SUPPOSITORY RC SCH (09:00)
[2022-11-11] MEDS: MAGNESIUM OXIDE 400 MG TABLET PO SCH (09:46)
[2022-11-11] MEDS: POTASSIUM CHLORIDE 10 MEQ TAB.PRT.SR PO SCH (09:46)
[2022-11-11] MEDS: GABAPENTIN 300 MG CAPSULE PO SCH ×2 (09:46→21:34)
[2022-11-11] MEDS: PANTOPRAZOLE SODIUM 40 MG TAB PO SCH (09:47)
[2022-11-11] MEDS: levETIRAcetam 500 MG TABLET PO SCH ×2 (09:47→21:34)
[2022-11-11] MEDS: ASCORBIC ACID 500 MG TABLET PO SCH (09:47)
[2022-11-11] MEDS: CHOLECALCIFEROL (VITAMIN D3) 2,000 UNIT TABLET PO SCH (09:48)
[2022-11-11] MEDS: FUROSEMIDE 20 MG TABLET PO SCH (09:49)
[2022-11-11] MEDS: OXcarbazepine 150 MG TABLET(TRILEPTAL) PO SCH ×2 (09:49→21:34)
[2022-11-11] MEDS: MULTIVITS,CA,MINERALS/IRON/FA 1 TABLET PO SCH (09:50)
[2022-11-11] MEDS: DOCUSATE SODIUM 100 MG CAPSULE PO SCH (09:53)
[2022-11-11] MEDS: cefTRIAXone 1 GM IVPB PREMIX 50 ML IV SCH (10:27)
[2022-11-11 11:35] VITALS: BP_SYST 141
[2022-11-11] MEDS ORDERED: ONDANSETRON HCL 4 MG/2 ML VIAL IVP PRN (12:30)
[2022-11-11] MEDS ORDERED: DOCUSATE SODIUM 100 MG CAPSULE PO PRN (12:45)
[2022-11-11] MEDS ORDERED: ALBUTEROL MDI INHALATION 8 GM INH INH SCH (13:00)
[2022-11-11] MEDS: SOD FERRIC GLUC COMPLEX/SUC 125 MG in NS 100 ML IV SCH (13:59)
[2022-11-11] MEDS: ALBUTEROL MDI INHALATION 8 GM INH INH SCH ×2 (15:51→19:43)
[2022-11-11 16:06] VITALS: BP_SYST 139
[2022-11-11] MEDS: AZITHROMYCIN 500 MG in NS 250 ML IV SCH (16:29)
[2022-11-11 16:45] VITALS: BP_SYST 130
[2022-11-11] MEDS: DECADRON 4 MG TABLET PO SCH (18:12)
[2022-11-11] MEDS: RIVAROXABAN 15 MG TABLET PO SCH (18:14)
[2022-11-11 20:00] VITALS: BP_SYST 143
[2022-11-11] MEDS: SENNOSIDES 8.6 MG TABLET PO SCH (21:00)
[2022-11-12 01:53] VITALS: BP_SYST 134
[2022-11-12 05:45] LABS: BASOPHILS % (AUTO) 0.2 % (0.0-2.0); HEMATOCRIT 32.7 % (36-48); HEMOGLOBIN 10.7 g/dL (12.0-16.0); LYMPHOCYTES # (AUTO) 0.2 K/uL (1.0-5.5); LYMPHOCYTES % (AUTO) 2.8 % (20.5-51.5); MEAN CORPUSCULAR HEMOGLOBIN 30 pg (27-31); MEAN CORPUSCULAR HGB CONC 33 % (32-36); MEAN CORPUSCULAR VOLUME 91 fL (79.0-98.0); MONOCYTES # (AUTO) 0.3 K/uL (0.0-1.0); MONOCYTES % (AUTO) 4.7 % (1.7-9.3); NEUTROPHILS # (AUTO) 6.2 K/uL (1.8-7.7); NEUTROPHILS % (AUTO) 92.3 % (40.0-70.0); PLATELET COUNT (AUTO) 293 K/uL (130-430); RED BLOOD CELL COUNT(AUTO) 3.59 MIL/uL (4.2-6.2); RED CELL DISTRIBUTION WIDTH 15.3 % (9.0-15.0); WHITE BLOOD COUNT (AUTO) 6.7 K/uL (4.8-10.8)
[2022-11-12 06:12] LABS: ALANINE AMINOTRANSFERASE 21 U/L (12-78); ALBUMIN 3.3 g/dL (3.4-4.8); ANION GAP 0 (5-15); ASPARTATE AMINOTRANSFERASE 28 U/L (10-37); CALCIUM 9.1 mg/dL (8.4-11.0); CHLORIDE 89 mmol/L (98-107); CREATININE 0.81 mg/dL (0.55-1.30); GLUCOSE 165 mg/dL (70-99); TOTAL BILIRUBIN 0.5 mg/dL (0.0-1.0); UREA NITROGEN, BLOOD 18 mg/dL (8-21)
[2022-11-12] MEDS: ALBUTEROL MDI INHALATION 8 GM INH INH SCH ×3 (07:31→15:29)
[2022-11-12 08:23] VITALS: BP_SYST 116
[2022-11-12 09:22] VITALS: BP_SYST 116
[2022-11-12] MEDS: GABAPENTIN 300 MG CAPSULE PO SCH ×2 (10:01→20:42)
[2022-11-12] MEDS: PANTOPRAZOLE SODIUM 40 MG TAB PO SCH (10:01)
[2022-11-12] MEDS: OXcarbazepine 150 MG TABLET(TRILEPTAL) PO SCH ×2 (10:02→20:42)
[2022-11-12] MEDS: MAGNESIUM OXIDE 400 MG TABLET PO SCH (10:02)
[2022-11-12] MEDS: FUROSEMIDE 20 MG TABLET PO SCH ×2 (10:03→17:53)
[2022-11-12] MEDS: MULTIVITS,CA,MINERALS/IRON/FA 1 TABLET PO SCH (10:03)
[2022-11-12] MEDS: POTASSIUM CHLORIDE 10 MEQ TAB.PRT.SR PO SCH (10:03)
[2022-11-12] MEDS: levETIRAcetam 500 MG TABLET PO SCH ×2 (10:03→20:42)
[2022-11-12] MEDS: CHOLECALCIFEROL (VITAMIN D3) 2,000 UNIT TABLET PO SCH (10:03)
[2022-11-12] MEDS: ASCORBIC ACID 500 MG TABLET PO SCH (10:03)
[2022-11-12 11:24] VITALS: BP_SYST 144
[2022-11-12 15:07] VITALS: BP_SYST 136
[2022-11-12] MEDS: cefTRIAXone 1 GM IVPB PREMIX 50 ML IV SCH (15:24)
[2022-11-12] MEDS: SOD FERRIC GLUC COMPLEX/SUC 125 MG in NS 100 ML IV SCH (17:02)
[2022-11-12] MEDS: RIVAROXABAN 15 MG TABLET PO SCH (17:49)
[2022-11-12] MEDS: DECADRON 4 MG TABLET PO SCH (17:49)
[2022-11-12] MEDS: QUEtiapine FUMARATE 25 MG TABLET PO SCH (17:50)
[2022-11-12] MEDS: AZITHROMYCIN 500 MG in NS 250 ML IV SCH (17:50)
[2022-11-12 20:30] VITALS: BP_SYST 143
[2022-11-12] MEDS: SENNOSIDES 8.6 MG TABLET PO SCH ×2 (20:42→22:58)
[2022-11-13] VITALS: BP_SYST 140
[2022-11-13 05:40] LABS: ANION GAP -1 (5-15); CALCIUM 8.9 mg/dL (8.4-11.0); CHLORIDE 91 mmol/L (98-107); CREATININE 0.87 mg/dL (0.55-1.30); GLUCOSE 153 mg/dL (70-99); UREA NITROGEN, BLOOD 18 mg/dL (8-21)
[2022-11-13 05:44] LABS: BASOPHILS % (AUTO) 0.1 % (0.0-2.0); EOSINOPHILS % (AUTO) 0.1 % (0.0-4.0); HEMATOCRIT 32.5 % (36-48); HEMOGLOBIN 10.5 g/dL (12.0-16.0); LYMPHOCYTES # (AUTO) 0.2 K/uL (1.0-5.5); LYMPHOCYTES % (AUTO) 2.4 % (20.5-51.5); MEAN CORPUSCULAR HEMOGLOBIN 30 pg (27-31); MEAN CORPUSCULAR HGB CONC 32 % (32-36); MEAN CORPUSCULAR VOLUME 91 fL (79.0-98.0); MONOCYTES # (AUTO) 0.5 K/uL (0.0-1.0); MONOCYTES % (AUTO) 6.6 % (1.7-9.3); NEUTROPHILS # (AUTO) 6.2 K/uL (1.8-7.7); NEUTROPHILS % (AUTO) 90.8 % (40.0-70.0); PLATELET COUNT (AUTO) 312 K/uL (130-430); RED BLOOD CELL COUNT(AUTO) 3.55 MIL/uL (4.2-6.2); RED CELL DISTRIBUTION WIDTH 15.1 % (9.0-15.0); WHITE BLOOD COUNT (AUTO) 6.9 K/uL (4.8-10.8)
[2022-11-13] MEDS: PANTOPRAZOLE SODIUM 40 MG TAB PO SCH (09:37)
[2022-11-13] MEDS: MAGNESIUM OXIDE 400 MG TABLET PO SCH (09:37)
[2022-11-13] MEDS: levETIRAcetam 500 MG TABLET PO SCH ×2 (09:38→21:25)
[2022-11-13] MEDS: OXcarbazepine 150 MG TABLET(TRILEPTAL) PO SCH ×2 (09:38→21:26)
[2022-11-13] MEDS: MULTIVITS,CA,MINERALS/IRON/FA 1 TABLET PO SCH (09:38)
[2022-11-13] MEDS: FUROSEMIDE 20 MG TABLET PO SCH ×2 (09:39→17:37)
[2022-11-13] MEDS: GABAPENTIN 300 MG CAPSULE PO SCH ×2 (09:39→21:26)
[2022-11-13] MEDS: ASCORBIC ACID 500 MG TABLET PO SCH (09:40)
[2022-11-13] MEDS: CHOLECALCIFEROL (VITAMIN D3) 2,000 UNIT TABLET PO SCH (09:40)
[2022-11-13] MEDS: cefTRIAXone 1 GM IVPB PREMIX 50 ML IV SCH (09:41)
[2022-11-13] MEDS: ALBUTEROL MDI INHALATION 8 GM INH INH SCH ×3 (11:55→20:22)
[2022-11-13] MEDS ORDERED: SODIUM POLYSTYRENE SULFONATE 15 GM/60 ML UDBTL PO ONE (12:00)
[2022-11-13 12:52] VITALS: BP_SYST 161
[2022-11-13] MEDS: SOD FERRIC GLUC COMPLEX/SUC 125 MG in NS 100 ML IV SCH (15:35)
[2022-11-13] MEDS: AZITHROMYCIN 500 MG in NS 250 ML IV SCH (17:35)
[2022-11-13] MEDS: DECADRON 4 MG TABLET PO SCH (17:36)
[2022-11-13] MEDS: QUEtiapine FUMARATE 25 MG TABLET PO SCH (17:37)
[2022-11-13 17:53] VITALS: BP_SYST 171
[2022-11-13] MEDS: RIVAROXABAN 15 MG TABLET PO SCH (18:30)
[2022-11-13 20:00] VITALS: BP_SYST 165
[2022-11-14 05:24] VITALS: BP_SYST 148
[2022-11-14 05:24] LABS: BASOPHILS % (AUTO) 0.4 % (0.0-2.0); EOSINOPHILS % (AUTO) 0.3 % (0.0-4.0); HEMATOCRIT 33.9 % (36-48); HEMOGLOBIN 11.2 g/dL (12.0-16.0); LYMPHOCYTES # (AUTO) 0.4 K/uL (1.0-5.5); MEAN CORPUSCULAR HEMOGLOBIN 30 pg (27-31); MEAN CORPUSCULAR HGB CONC 33 % (32-36); MEAN CORPUSCULAR VOLUME 90 fL (79.0-98.0); MONOCYTES # (AUTO) 0.6 K/uL (0.0-1.0); MONOCYTES % (AUTO) 6.7 % (1.7-9.3); NEUTROPHILS # (AUTO) 8.4 K/uL (1.8-7.7); NEUTROPHILS % (AUTO) 88.6 % (40.0-70.0); PLATELET COUNT (AUTO) 434 K/uL (130-430); RED BLOOD CELL COUNT(AUTO) 3.75 MIL/uL (4.2-6.2); RED CELL DISTRIBUTION WIDTH 15.1 % (9.0-15.0); WHITE BLOOD COUNT (AUTO) 9.5 K/uL (4.8-10.8)
[2022-11-14 05:40] LABS: ANION GAP 3 (5-15); CALCIUM 9.3 mg/dL (8.4-11.0); CHLORIDE 91 mmol/L (98-107); CREATININE 0.93 mg/dL (0.55-1.30); GLUCOSE 160 mg/dL (70-99); UREA NITROGEN, BLOOD 17 mg/dL (8-21)
[2022-11-14] MEDS: ALBUTEROL MDI INHALATION 8 GM INH INH SCH ×4 (07:37→19:00)
[2022-11-14 07:50] VITALS: BP_SYST 162
[2022-11-14] MEDS: MAGNESIUM OXIDE 400 MG TABLET PO SCH (10:09)
[2022-11-14] MEDS: PANTOPRAZOLE SODIUM 40 MG TAB PO SCH (10:10)
[2022-11-14] MEDS: FUROSEMIDE 40 MG TABLET PO SCH (10:10)
[2022-11-14] MEDS: GABAPENTIN 300 MG CAPSULE PO SCH ×2 (10:10→22:10)
[2022-11-14] MEDS: ASCORBIC ACID 500 MG TABLET PO SCH (10:11)
[2022-11-14] MEDS: CHOLECALCIFEROL (VITAMIN D3) 2,000 UNIT TABLET PO SCH (10:11)
[2022-11-14] MEDS: MULTIVITS,CA,MINERALS/IRON/FA 1 TABLET PO SCH (10:11)
[2022-11-14] MEDS: OXcarbazepine 150 MG TABLET(TRILEPTAL) PO SCH ×2 (10:12→22:09)
[2022-11-14] MEDS: levETIRAcetam 500 MG TABLET PO SCH ×2 (10:12→22:10)
[2022-11-14] MEDS: cefTRIAXone 1 GM IVPB PREMIX 50 ML IV SCH (10:16)
[2022-11-14 12:00] VITALS: BP_SYST 151
[2022-11-14] MEDS ORDERED: ASC500 PO (14:46)
[2022-11-14] MEDS ORDERED: MULT-1145 PO (14:46)
[2022-11-14] MEDS ORDERED: RIVA15TA PO (14:46)
[2022-11-14] MEDS ORDERED: VITD2000 PO (14:46)
[2022-11-14] MEDS ORDERED: FURO-149 PO (14:46)
[2022-11-14] MEDS ORDERED: LEVO-62 PO (14:46)
[2022-11-14] MEDS ORDERED: LACT1CAP89 PO (14:46)
[2022-11-14] MEDS ORDERED: SENN-153 PO (14:46)
[2022-11-14] MEDS ORDERED: DEC1 PO (14:46)
[2022-11-14 16:57] VITALS: BP_SYST 149
[2022-11-14] MEDS: AZITHROMYCIN 500 MG in NS 250 ML IV SCH (18:00)
[2022-11-14] MEDS: DEXAMETHASONE SOD PHOSPHATE 10 MG/ML VIAL IVP SCH (18:00)
[2022-11-14] MEDS: QUEtiapine FUMARATE 25 MG TABLET PO SCH (18:20)
[2022-11-14] MEDS: RIVAROXABAN 15 MG TABLET PO SCH (18:21)
[2022-11-14 20:00] VITALS: BP_SYST 144
[2022-11-14] MEDS: SENNOSIDES 8.6 MG TABLET PO SCH (22:11)
[2022-11-15 03:44] VITALS: BP_SYST 158
[2022-11-15] MEDS: ALBUTEROL MDI INHALATION 8 GM INH INH SCH ×4 (07:49→20:36)
[2022-11-15 07:56] VITALS: BP_SYST 161
[2022-11-15 08:09] VITALS: BP_SYST 161
[2022-11-15] MEDS: CHOLECALCIFEROL (VITAMIN D3) 2,000 UNIT TABLET PO SCH (08:55)
[2022-11-15] MEDS: MULTIVITS,CA,MINERALS/IRON/FA 1 TABLET PO SCH (08:55)
[2022-11-15] MEDS: PANTOPRAZOLE SODIUM 40 MG TAB PO SCH (08:56)
[2022-11-15] MEDS: ASCORBIC ACID 500 MG TABLET PO SCH (08:56)
[2022-11-15] MEDS: MAGNESIUM OXIDE 400 MG TABLET PO SCH (08:56)
[2022-11-15] MEDS: OXcarbazepine 150 MG TABLET(TRILEPTAL) PO SCH ×2 (08:56→21:24)
[2022-11-15] MEDS: GABAPENTIN 300 MG CAPSULE PO SCH ×2 (08:56→21:24)
[2022-11-15] MEDS: levETIRAcetam 500 MG TABLET PO SCH ×2 (08:56→21:19)
[2022-11-15] MEDS: FUROSEMIDE 40 MG TABLET PO SCH (08:57)
[2022-11-15] MEDS: cefTRIAXone 1 GM IVPB PREMIX 50 ML IV SCH (09:00)
[2022-11-15 12:57] VITALS: BP_SYST 159
[2022-11-15 16:00] VITALS: BP_SYST 157
[2022-11-15] MEDS: AZITHROMYCIN 500 MG in NS 250 ML IV SCH (16:06)
[2022-11-15] MEDS: QUEtiapine FUMARATE 25 MG TABLET PO SCH (18:46)
[2022-11-15] MEDS: DEXAMETHASONE SOD PHOSPHATE 10 MG/ML VIAL IVP SCH (18:46)
[2022-11-15] MEDS: RIVAROXABAN 15 MG TABLET PO SCH (18:51)
[2022-11-15] MEDS: SENNOSIDES 8.6 MG TABLET PO SCH (21:20)
[2022-11-16 00:25] VITALS: BP_SYST 147
[2022-11-16] MEDS: ALBUTEROL MDI INHALATION 8 GM INH INH SCH ×4 (07:05→19:00)
[2022-11-16 09:20] VITALS: BP_SYST 160
[2022-11-16] MEDS: ASCORBIC ACID 500 MG TABLET PO SCH (09:33)
[2022-11-16] MEDS: MULTIVITS,CA,MINERALS/IRON/FA 1 TABLET PO SCH (09:34)
[2022-11-16] MEDS: levETIRAcetam 500 MG TABLET PO SCH ×2 (09:34→21:13)
[2022-11-16] MEDS: OXcarbazepine 150 MG TABLET(TRILEPTAL) PO SCH ×2 (09:34→21:14)
[2022-11-16] MEDS: PANTOPRAZOLE SODIUM 40 MG TAB PO SCH (09:34)
[2022-11-16] MEDS: CHOLECALCIFEROL (VITAMIN D3) 2,000 UNIT TABLET PO SCH (09:34)
[2022-11-16] MEDS: GABAPENTIN 300 MG CAPSULE PO SCH ×2 (09:35→21:13)
[2022-11-16] MEDS: MAGNESIUM OXIDE 400 MG TABLET PO SCH (09:35)
[2022-11-16] MEDS: FUROSEMIDE 40 MG TABLET PO SCH (09:36)
[2022-11-16 12:57] VITALS: BP_SYST 152
[2022-11-16 16:57] VITALS: BP_SYST 149
[2022-11-16] MEDS: DEXAMETHASONE SOD PHOSPHATE 4 MG/ML VIAL IVP SCH (17:55)
[2022-11-16] MEDS: RIVAROXABAN 15 MG TABLET PO SCH (17:55)
[2022-11-16] MEDS: QUEtiapine FUMARATE 25 MG TABLET PO SCH (17:55)
[2022-11-16 19:00] VITALS: BP_SYST 146
[2022-11-16 20:00] VITALS: BP_SYST 146
[2022-11-16] MEDS: SENNOSIDES 8.6 MG TABLET PO SCH (21:14)
[2022-11-17 00:15] VITALS: BP_SYST 149
[2022-11-17 05:22] LABS: BASOPHILS % (AUTO) 0.1 % (0.0-2.0); EOSINOPHILS % (AUTO) 0.3 % (0.0-4.0); HEMOGLOBIN 10.5 g/dL (12.0-16.0); LYMPHOCYTES # (AUTO) 0.2 K/uL (1.0-5.5); LYMPHOCYTES % (AUTO) 4.6 % (20.5-51.5); MEAN CORPUSCULAR HEMOGLOBIN 30 pg (27-31); MEAN CORPUSCULAR HGB CONC 34 % (32-36); MEAN CORPUSCULAR VOLUME 89 fL (79.0-98.0); MONOCYTES # (AUTO) 0.5 K/uL (0.0-1.0); NEUTROPHILS # (AUTO) 4.5 K/uL (1.8-7.7); PLATELET COUNT (AUTO) 400 K/uL (130-430); RED BLOOD CELL COUNT(AUTO) 3.47 MIL/uL (4.2-6.2); WHITE BLOOD COUNT (AUTO) 5.4 K/uL (4.8-10.8)
[2022-11-17 05:40] LABS: ANION GAP 4 (5-15); CALCIUM 8.7 mg/dL (8.4-11.0); CHLORIDE 86 mmol/L (98-107); CREATININE 0.71 mg/dL (0.55-1.30); GLUCOSE 126 mg/dL (70-99); UREA NITROGEN, BLOOD 10 mg/dL (8-21)
[2022-11-17 08:10] VITALS: BP_SYST 172
[2022-11-17] MEDS: GABAPENTIN 300 MG CAPSULE PO SCH (08:47)
[2022-11-17] MEDS: ASCORBIC ACID 500 MG TABLET PO SCH (08:47)
[2022-11-17] MEDS: FUROSEMIDE 40 MG TABLET PO SCH (08:47)
[2022-11-17] MEDS: PANTOPRAZOLE SODIUM 40 MG TAB PO SCH (08:47)
[2022-11-17] MEDS: levETIRAcetam 500 MG TABLET PO SCH (08:47)
[2022-11-17] MEDS: MAGNESIUM OXIDE 400 MG TABLET PO SCH (08:48)
[2022-11-17] MEDS: MULTIVITS,CA,MINERALS/IRON/FA 1 TABLET PO SCH (08:48)
[2022-11-17] MEDS: CHOLECALCIFEROL (VITAMIN D3) 2,000 UNIT TABLET PO SCH (08:48)
[2022-11-17] MEDS: OXcarbazepine 150 MG TABLET(TRILEPTAL) PO SCH (08:49)
[2022-11-17] MEDS: ALBUTEROL MDI INHALATION 8 GM INH INH SCH ×3 (09:12→17:05)
[2022-11-17] MEDS ORDERED: POTASSIUM CHLORIDE 20 MEQ/PKT PACKET PO ONE ×2 (09:45→13:15)
[2022-11-17] MEDS ORDERED: LOSARTAN POTASSIUM 50 MG TABLET (COZAAR) PO ONE ×2 (09:45→13:15)
[2022-11-17 11:44] VITALS: BP_SYST 166
[2022-11-17] MEDS ORDERED: POTASSIUM CHLORIDE 20 MEQ TAB.PRT.SR PO ONE (14:00)
[2022-11-17] MEDS ORDERED: POTA-197 PO (16:10)
[2022-11-17 16:24] VITALS: BP_SYST 166
[2022-11-17] MEDS: DEXAMETHASONE SOD PHOSPHATE 4 MG/ML VIAL IVP SCH (18:25)
[2022-11-17 18:42] VITALS: BP_SYST 140
[2022-11-17] MEDS ORDERED: POTASSIUM CHLORIDE 20 MEQ/PKT PACKET PO SCH (21:00)
[2022-11-18] MEDS ORDERED: LOSARTAN POTASSIUM 50 MG TABLET (COZAAR) PO SCH (09:00)
== END 2022-11-17 18:52 | disposition home health service (06) | DRG 871 ==
LOC: SED 21:52 → SIC 11-09 02:50 → STU 11-09 04:26 → SMU 11-13 14:11
PROVIDERS: ADMIT Internal Medicine; ATTEND Internal Medicine
DX: A41.9 Sepsis, unspecified organism (principal); J12.82 Pneumonia due to coronavirus disease 2019; U07.1 COVID-19; J96.01 Acute respiratory failure with hypoxia; E44.1 Mild protein-calorie malnutrition; J44.1 Chronic obstructive pulmonary disease with (acute) exacerbation; N39.0 Urinary tract infection, site not specified; I48.20 Chronic atrial fibrillation, unspecified; E87.1 Hypo-osmolality and hyponatremia; F05 Delirium due to known physiological condition; I50.42 Chronic combined systolic (congestive) and diastolic (congestive) heart failure; J44.0 Chronic obstructive pulmonary disease with (acute) lower respiratory infection; G40.909 Epilepsy, unspecified, not intractable, without status epilepticus; G25.81 Restless legs syndrome; R29.6 Repeated falls; D50.9 Iron deficiency anemia, unspecified; I11.0 Hypertensive heart disease with heart failure; E87.5 Hyperkalemia; Z66 Do not resuscitate; Z88.5 Allergy status to narcotic agent; Z88.8 Allergy status to other drugs, medicaments and biological substances; Z85.07 Personal history of malignant neoplasm of pancreas; Z86.73 Personal history of transient ischemic attack (TIA), and cerebral infarction without residual deficits; Z87.891 Personal history of nicotine dependence; Z90.49 Acquired absence of other specified parts of digestive tract; Z92.21 Personal history of antineoplastic chemotherapy; Z95.0 Presence of cardiac pacemaker; Z74.01 Bed confinement status
CPT/HCPCS: 36415; 36600; 70450-TC; 71045; 71250-TC; 76376; 80048; 80053; 80061; 81000; 82607; 82746; 82803; 83540; 83550; 83690; 83735; 83880; 84443; 85025; 86140; 87070-TC; 87081; 87086; 87101; 87205-TC; 87230-TC; 93005; 93306; 94640; 94664; 94760; 96365; 96368; 96375; 97110-GP; 97116-GP; 97163-GP; 97530-GP; 99291; G0378; J0456; J0696; J1030; J1100; J1580; J1953; J2405; J2543; J2916; J2930; J7050; J7060; J7613; J8540